=== PATIENT | male | born 1975 | race Two or more races ===

== ENCOUNTER 2019-10-06 23:46 | Emergency (ER) | payer OTHER ==
[~2019-10-06] VITALS: Ht 180.3 cm; Wt 102.1 kg
[~2019-10-06 23:46] MED LIST: CATAFLAM50 MG PO; KETO10TA2 PO; MOTRIN800 MG PO; SEPTRA DS TABLE1 TAB PO
[2019-10-07] MEDS ORDERED: DUI500 PO (02:52)
[2019-10-07] MEDS ORDERED: INDOMETHACIN50 MG PO ×2 (02:54→02:55)
== END 2019-10-07 03:01 | disposition home or self-care (01) ==
LOC: ER 23:46
DX: M25.474 Effusion, right foot (principal)

== ENCOUNTER 2023-01-29 12:05 | Emergency (ER) | payer OTHER ==
[~2023-01-29] VITALS: Ht 182.9 cm; Wt 111.1 kg
[~2023-01-29 12:05] MED LIST changes: +DUI500 PO; +INDOMETHACIN50 MG PO
[2023-01-29 13:30] LABS: HEMATOCRIT 40.7 % (39.0-48.0); MEAN CORPUSCULAR HEMOGLOBIN 25.9 pg (27.00-32.0); PLATELET COUNT 369 K/uL (150-450); RED BLOOD COUNT 5.03 M/uL (4.00-6.00); RED CELL DISTRIBUTION WIDTH 13.5 % (11.5-14.5)
[2023-01-29 14:16] LABS: BILIRUBIN TOTAL 0.18 mg/dL (0.3-1.2); CALCIUM 9.5 mg/dL (8.5-10.1); CREATININE SERUM 1.23 mg/dL (0.70-1.30); GFR 62.81; GLOBULINA 3.6 G/DL (2.4-3.5); POTASSIUM 4.22 mEq/L (3.5-5.1); TOTAL PROTEIN 7.6 gm/dL (6.4-8.2)
[2023-01-29] MEDS ORDERED: DICLOFENAC SODI75 MG PO (15:00)
== END 2023-01-29 15:16 | disposition home or self-care (01) ==
LOC: ER 12:05
PROVIDERS: General Practice
DX: M25.572 Pain in left ankle and joints of left foot (principal)